=== PATIENT | female | born 1980 | race Caucasian/White ===

== ENCOUNTER 2021-12-08 14:24 | Outpatient (CLI) | payer BC, SELFPAY | END 2021-12-08 14:25 | disposition home or self-care (01) | LOC: KYNREF 14:26 | PROVIDERS: PCP Family Medicine; Visit Provider Nurse Practitioner Family | DX: R21 Rash and other nonspecific skin eruption (principal); L50.8 Other urticaria | CPT/HCPCS: 36415; 86618 ==

== ENCOUNTER 2022-05-07 12:34 | Outpatient (CLI) | payer BC, SELFPAY ==
--- NOTE | 2022-05-07 13:00 | CRLHL7_ITS ---
For Patients: As a result of the Cures Act, medical imaging exams and procedure reports are released immediately into your electronic medical record. You may view this report before your referring provider. If you have questions, please contact your health care provider. BILATERAL SCREENING MAMMOGRAM WITH COMPUTER-AIDED DETECTION AND TOMOSYNTHESIS TECHNIQUE: CC and MLO views were obtained. These mammographic images have been obtained using full-field digital technique. These mammographic images were interpreted with the benefit of computer-aided detection. Breast Tomosynthesis was used in this interpretation. COMPARISON FILM: 04/15/21. FINDINGS: There are scattered areas of fibroglandular density IMPRESSION: There is no radiographic evidence for malignancy. ASSESSMENT: BI-RADS Category 1: Negative RECOMMENDATION: Routine screening mammogram in 1 year. A lay language report of this examination will be provided to the patient. CHELA PERDUE M.D. Diagnostic/Nuclear Medicine Radiologist [email or web address] [place]:[email or web address] Transcribed: 3:39 p.mValerie parrish/Dictated by: Chela Perdue MD @ 05/10/2022 8:35:00 AM (Electronically Signed)
== END 2022-05-07 12:35 | disposition home or self-care (01) ==
LOC: MAMMO 12:36
PROVIDERS: PCP Family Medicine; Visit Provider Family Medicine
DX: Z12.31 Encounter for screening mammogram for malignant neoplasm of breast (principal)
CPT/HCPCS: 77063; 77067

== ENCOUNTER 2023-06-03 08:08 | Outpatient (CLI) | payer OTHER, SELFPAY ==
--- OUTSIDE RECORDS SUMMARY | 2023-06-03 08:12 | XMS_ITS | Clinical Summary ---
Author Name Unknown Organization [facility] Address [place], [place] [address] Care Team Providers Care Geothermal Hvac Technician Name Role Phone Gabi Cleveland MD Primary Care Provider [phone] Allergies No known active allergies Medications Medication Sig Dispensed Refills Start Date End Date Status ZYRTEC 10 MG TAB take 1 tablet (10 mg) by oral route once daily 0 07/06/2007 Active PROVENTIL 90 MCG/ACTUATION AEROSOL INHALER inhale 1 puff by inhalation route every 4-6 hours as needed 0 07/06/2007 Active VITAMIN TAB take 1 tablet by oral route once daily 0 07/06/2007 Active Family History Medical History Relation Name Comments Diabetes type I Mother Diabetes type I Son Relation Name Status Comments Mother Son Social History Tobacco Use Types Packs/Day Years Used Date Smoking Tobacco: Never Smokeless Tobacco: Never Alcohol Use Standard Drinks/Week Comments No 0 (1 standard drink = 0.6 oz pur e alcohol) Sex and Gender Information Value Date Recorded Sex Assigned at Not on file Gender Identity Not on file Sexual Orientation Not on file Obstetrics History Last Filed Vital Signs Vital Sign Reading Time Taken Comments Blood Pressure 107/72 01/31/2019 8:58 AM CDT Pulse 81 01/31/2019 8:58 AM CDT Temperature - - Respiratory Rate - - Oxygen Saturation 96% 01/31/2019 8:58 AM CDT Inhaled Oxygen Concentration - - Weight 96.6 kg (213 lb) 01/31/2019 8:58 AM CDT Height - - Body Mass Index - - Plan of Treatment Health Maintenance Due Date Last Done Comments COVID-19 vaccine series (#1) 04/30/1981 Tdap 10/29/1991 Depression screening for age 12+ 1992 HIV for age 15-65 10/29/1995 BMI (ht and wt on same day) for age 18+ 1998 Hepatitis C screening for age 18-79 1998 Tetanus booster 2000 Influenza for age 9-49 12/17/2022 Pap test for age 21-65 02/10/2024 , 02/09/2021, 08/08/2017, Additional history exists Pneumococcal series for age 6-64 Aged Out No longer eligible based on patient's age to complete this topic Care Teams Geothermal Hvac Technician Relationship Specialty Start Date End Date Gabi Cleveland MD [address] [place] [address] PCP - General 07/06/07
--- NOTE | 2023-06-03 08:15 | MM_ITS ---
Final Report Patient: HENRY HARRIS Facility:?[facility] Patient ID:?[id number] Site Patient ID:?[id number]. Site :?[id number] Study:?XRay Breast Bilateral 3D W/CAD-06/03/2023 8:34:14 AM Ordering Physician:Doen Final Report: BILATERAL DIGITAL TOMOSYNTHESIS SCREENING MAMMOGRAM WITH COMPUTER-AIDED DETECTION CLINICAL HISTORY: Routine screening exam. COMPARISON: 05/07/2022, 04/15/2021 TECHNIQUE: Digital tomosynthesis mammogram in CC and MLO projections including computer- aided detection (CAD). BREAST COMPOSITION: Scattered fibroglandular densities. FINDINGS: RIGHT Breast: Normal breast tissue. No masses or achritectural distortion. No suspicious calcifications or adenopathy. LEFT Breast: Normal breast tissue. No masses or achritectural distortion. No suspicious calcifications or adenopathy. IMPRESSION: No suspicious findings. RECOMMENDATIONS: Annual bilateral screening mammography. BI-RADS category 1. Negative. Dictated by Emanuel Lara MD @ 06/03/2023 10:04:00 AM (Electronic Signature)
== END 2023-06-03 08:09 | disposition home or self-care (01) ==
PROVIDERS: PCP Family Medicine; Visit Provider Family Medicine
DX: Z12.31 Encounter for screening mammogram for malignant neoplasm of breast (principal)
CPT/HCPCS: 77063; 77067

== ENCOUNTER 2024-06-15 15:12 | Outpatient (CLI) | payer OTHER, SELFPAY | END 2024-06-15 15:13 | disposition home or self-care (01) | LOC: MAMMO 15:12 | PROVIDERS: PCP Family Medicine; Visit Provider Family Medicine | DX: Z12.31 Encounter for screening mammogram for malignant neoplasm of breast (principal) | CPT/HCPCS: 77063; 77067 ==

== ENCOUNTER 2024-07-31 14:22 | Outpatient (CLI) | payer OTHER, SELFPAY | END 2024-07-31 14:23 | disposition home or self-care (01) | PROVIDERS: PCP Family Medicine; Visit Provider Family Medicine | DX: Z13.228 Encounter for screening for other metabolic disorders (principal); Z13.6 Encounter for screening for cardiovascular disorders; Z13.0 Encounter for screening for diseases of the blood and blood-forming organs and certain disorders involving the immune mechanism | CPT/HCPCS: 80048; 80061; 85025 ==